=== PATIENT | male | born 1930 | race Caucasian/White ===

== ENCOUNTER 2016-11-09 21:03 | Emergency (ER) | payer OTHER, MEDICARE ==
[~2016-11-09] VITALS: Ht 177.8 cm; Wt 74.8 kg
[~2016-11-09 21:03] MED LIST: ATORVASTATIN CA40 M1 PO; CYANOCOBAL1000 MCG/2 AD; DONEPEZIL HCL10 M1 PO; ELIQUIS2.5 M1 PO; FISH OIL 120 MG1 CAP PO; HYDRALAZINE HCL10 M1 PO; LISINOPRIL10 M1 PO; LISINOPRIL10 MG PO; LISINOPRIL20 MG PO; LOPRESSOR100 M1 PO; MAG-OX 400400 MG PO; NAMENDA10 M2 PO; NORVASC2.5 M1 PO; PERCOCET 325 MG1 TA2 PO; SIMVASTATIN40 MG PO; TYLENOL #31 TAB PO; VITAMIN D400 UNI2 PO; ZOFRAN ODT4 MG PO; ZOFRAN4 M1 PO
[2016-11-09 21:54] LABS: ABSOLUTE BASOPHIL COUNT 0 /CUMM (0.0-0.2); ABSOLUTE EOSINOPHIL COUNT 0 /CUMM (0.0-0.7); ABSOLUTE GRANULOCYTE CT 4.1 /CUMM (1.4-6.5); ABSOLUTE LYMPH COUNT 0.6 /CUMM (1.2-3.4); ABSOLUTE MONOCYTE COUNT 0.5 /CUMM (0.10-0.60); BASOPHIL % 0.5 % (0.0-2.0); EOSINOPHIL % 0.7 % (0-5); GRANULOCYTE % 77.4 % (42.2-75.2); HEMATOCRIT 40.8 % (42-52); MEAN CORPUSCULAR HGB CONC 33.4 G/DL (33.0-37.0); MEAN CORPUSCULAR VOLUME 95.7 FL (80.0-94.0); MEAN PLATELET VOLUME 7.9 FL (7.4-10.4); PLATELET COUNT 177 /CUMM (130-400); RBC DISTRIBUTION WIDTH 13.7 % (11.5-14.5); RED BLOOD CELL CT 4.27 /CUMM (4.70-6.10); WHITE BLOOD CELL COUNT 5.4 /CUMM (4.8-10.8)
[2016-11-09 22:03] LABS: PT 10.9 SEC (9.4-12.5); PTT 29 SEC (25-37)
--- NOTE | 2016-11-09 22:03 | ED CARDIAC/CP/PALPITATIONS ---
History of Present Illness General Chief Complaint: General Adult Stated Complaint: "CARDIAC PROBLEM" Source: patient Exam Limitations: no limitations Vital Signs & Intake/Output Vital Signs & Intake/Output Vital Signs Date Time Temp Pulse Resp B/P Pulse O2 O2 Flow FiO2 Ox Delivery Rate 11/09 2304 97.5 69 20 109/63 94 Room Air 11/09 2115 98.5 104 18 125/81 95 Room Air Allergies Coded Allergies: No Known Drug Allergies (06/24/16) Reconcile Medications Amlodipine (Norvasc) (Unknown Strength) TABLET 1 TAB PO BID HEART/BP ( Reported) Apixaban (Eliquis) 2.5 MG TABLET 1 TAB PO BID BLOOD THINNER (Reported) Atorvastatin Calcium 40 MG TABLET 0.5 TAB PO QPM CHOLESTEROL (Reported) Cholecalciferol (Vitamin D3) (Vitamin D) (Unknown Strength) TABLET (Unknown Dose) PO DAILY SUPPLEMENT (Reported) Cyanocobalamin (Vitamin B-12) (Cyanocobalamin Injection) (Unknown Strength) VIAL (Unknown Dose) AD AD SUPPLEMENT (Reported) Donepezil HCl 10 MG TABLET 1 TAB PO QPM MEMORY (Reported) Lisinopril 10 MG TABLET 1 TAB PO QAM HEART/BP (Reported) Metoprolol Tartrate (Lopressor) (Unknown Strength) TABLET 100 MG PO QAM HEART/ BP (Reported) Triage Note: PT TO TRIAGE WITH C/O MIDSTERNAL CHEST PAIN 2/10, PALPITATIONS, AND 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 HR 104 IN TRIAGE, O2SAT 95% ON RA. HX OF ARRHYTHMIA, PROSTATE CA, CARCENOMA. EKG DONE IN [place], PT TO ROOM2 BY STRETCHER. Triage Nurses Notes Reviewed? yes Onset: Abrupt Duration: hour(s):, constant, continues in ED Timing: recent history HPI: 86-year-old male comes into emergency room with complaints of heart palpitations and going on since couple hours prior to arrival. Patient reports the symptoms are better at this time. Denies any chest pain shortness of breath diaphoresis nausea vomiting. Denies any other associated symptoms. (VINCENT HAMILTON) Past History Travel History Traveled to [place] past 21 day No Medical History Any Pertinent Medical History? 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 No (VINCENT HAMILTON) Review of Systems Review of Systems Constitutional: Reports: no symptoms. EENTM: Reports: no symptoms. Respiratory: Reports: no symptoms. Cardiovascular: Reports: see HPI. GI: Reports: no symptoms. Genitourinary: Reports: no symptoms. Musculoskeletal: Reports: no symptoms. Skin: Reports: no symptoms. Neurological/Psychological: Reports: no symptoms. Hematologic/Endocrine: Reports: no symptoms. Immunologic/Allergic: Reports: no symptoms. All Other Systems: Reviewed and Negative (VINCENT HAMILTON) Physical Exam Physical Exam General Appearance: well developed/nourished, no apparent distress, alert Head: atraumatic, normal appearance Eyes: Bilateral: normal appearance, EOMI. Ears, Nose, Throat: normal pharynx, normal ENT inspection Neck: normal inspection Respiratory: normal breath sounds, no respiratory distress Cardiovascular: regular rate/rhythm Back: normal inspection Extremities: normal inspection Neurologic/Psych: awake, alert, oriented x 3, normal gait Skin: intact, normal color Core Measures ACS in differential dx? No Severe Sepsis Present: No Septic Shock Present: No (VINCENT HAMILTON) Progress Differential Diagnosis: AMI, aortic dissection, cholecystitis, costochondritis, hyperkalemia, hypovolemia, hyperthyroid, intracranial hemorrhage, musculoskeletal pain, myocarditis, pancreatitis, pericarditis, pneumothorax, PSVT, pulmonary embolism, PVCs/PACs, respiratory failure, rib fracture, unstable angina, V-fib/V-Tach Plan of Care: Orders Procedure Date/time Status EKG 11/09 2256 Active Telemetry/Solar System Installer 11/09 2133 Active TROPONIN LEVEL 11/09 2132 Complete PARTIAL THROMBOPLASTIN TIME 11/09 2132 Complete PROTHROMBIN TIME 11/09 2132 Complete COMPREHENSIVE METABOLIC PANEL 11/09 2132 Complete CBC WITHOUT DIFFERENTIAL 11/09 2132 Complete EKG 11/09 2103 Active Laboratory Tests 02/14/17 2145: Anion Gap 9, Estimated GFR > 60, BUN/Creatinine Ratio 23.6, Glucose 162 H, Calcium 8.6, Total Bilirubin 0.3, AST 20, ALT 30, Alkaline Phosphatase 64, Troponin I 0.03, Total Protein 6.2 L, Albumin 3.9, Globulin 2.3, Albumin/ Globulin Ratio 1.7, PT 10.9, INR 1.04, APTT 29, CBC w Diff NO MAN DIFF REQ, RBC 4.27 L, MCV 95.7 H, MCH 32.0 H, RDW 13.7, MPV 7.9, Gran % 77.4 H, Lymphocytes % 12.1 L, Monocytes % 9.3, Eosinophils % 0.7, Basophils % 0.5, Absolute Granulocytes 4.1, Absolute Lymphocytes 0.6 L, Absolute Monocytes 0.5, Absolute Eosinophils 0, Absolute Basophils 0, PUBS MCHC 33.4 Diagnostic Imaging: Viewed by Me: Radiology Read. Discussed w/RAD: Radiology Read. Radiology Impression: SERVICE DATE: 11/09/16 EXAM TYPE: RAD - XRY- PORTABLE CHEST XRAY EXAMINATION: XR PORTABLE CHEST CLINICAL INFORMATION: Palpitations. COMPARISON: Chest x-ray 07/12/2016 TECHNIQUE: Portable AP portable view of the chest was obtained. 10:14 PM FINDINGS: Ventriculoperitoneal shunt catheter over the right chest. Lungs are clear. No pulmonary vascular congestion. No infiltrate or pleural effusion. The heart size is normal. The cardiac and mediastinal contours are normal. There are calcifications of the thoracic aorta. There are multilevel degenerative changes of dorsal spine. IMPRESSION: Unremarkable examination. Initial ED EKG: rate (106), AFIB Repeat EKG: changed (NSR, rate 71) Rhythm Strip: patient appears to be in sinus rhythm on the monitor (VINCENT HAMILTON) Departure Departure Disposition: HOME OR SELF CARE Condition: Stable Clinical Impression Primary Impression: Paroxysmal a-fib Referrals: TRUMAN MALIK,JANINA Chawla (PCP/Family) Additional Instructions: Follow-up with your agent broker this week. Return to the emergency room immediately if any other concerns worsening symptoms. Please go over all results of today's visit with your primary care doctor. Contact your primary care doctor to let them know you were here in the emergency room. There may be nonspecific findings which may not be related to your visit today here in the emergency room but may require further evaluation and chronic monitoring by your primary care doctor. If you had a laceration today the chance of foreign body always remains. You should follow-up with your primary care doctor for recheck in 3-5 days for a wound check. If you had an x-ray done there is a chance that a fracture could have been missed on initial read and you should follow-up with your primary care doctor for repeat x-rays if symptoms persist. If your blood pressure was elevated here in the emergency room please have rechecked by her primary care doctor within the next 48 hours by your primary care doctor. If you were prescribed a narcotic here in the emergency room or any type of controlled substances you're not allowed to drive while taking this medication or operate any type of heavy machinery. Narcotics can make you feel lightheaded dizziness nausea and can cause constipation. You may need to pick pack worker a stool softener. Thank you for choosing [facility] emergency room. Please return to the emergency room immediately if you have any other concerns worsening of symptoms. Departure Forms: Customer Survey General Discharge Information Comments 11/09/2016 11:54:58 PM Patient converted back to a normal sinus rhythm. Patient's symptoms resolved. Case was discussed with Dr. Trent. Patient is currently on oral anticoagulants. Patient has not had any chest pain or shortness of breath. Patient only had palpitations. Due to the fact that the patient is asymptomatic with a normal workup and in normal sinus rhythm at this time and is currently on oral anticoagulants patient can be discharged and follow up with cardiology this week in the office. Case discussed with Dr. Bolden and patient was seen by Dr. Bolden. (VINCENT HAMILTON) PA/IRON MELTER Co-Sign Statement Statement: ED Attending supervision documentation- [x] I saw and evaluated the patient. I have also reviewed all the pertinent lab results and diagnostic results. I agree with the findings and the plan of care as documented in the PA's/IRON MELTER's documentation. [] I have reviewed the ED Record and agree with the PA's/IRON MELTER's documentation. [] Additions or exceptions (if any) to the PAs/IRON MELTER's note and plan are summarized below: [] (AUDRA MALIK,JUSTICE Reed) Critical Care Note Critical Care Note Critical Care Time: non-applicable (VINCENT HAMILTON)
--- NOTE | 2016-11-09 22:37 | RADIOLOGY REPORT ---
EXAMINATION: XR PORTABLE CHEST CLINICAL INFORMATION: Palpitations. COMPARISON: Chest x-ray 07/12/2016 TECHNIQUE: Portable AP portable view of the chest was obtained. 10:14 PM FINDINGS: Ventriculoperitoneal shunt catheter over the right chest. Lungs are clear. No pulmonary vascular congestion. No infiltrate or pleural effusion. The heart size is normal. The cardiac and mediastinal contours are normal. There are calcifications of the thoracic aorta. There are multilevel degenerative changes of dorsal spine. IMPRESSION: Unremarkable examination.
[2016-11-09 23:04] VITALS: BP 109/63
== END 2016-11-09 23:44 ==
LOC: ERH 21:03
PROVIDERS: Physician Assistant Medical
DX: R07.89 Other chest pain (principal); I48.91 Unspecified atrial fibrillation
CPT/HCPCS: 93005; 93010

== ENCOUNTER 2017-02-21 10:04 | Emergency (ER) | payer OTHER, MEDICARE ==
[~2017-02-21] VITALS: Ht 177.8 cm; Wt 76.2 kg
--- NOTE | 2017-02-21 11:10 | ED AMS/SEIZURE/WEAK/DIZZY ---
History of Present Illness General Chief Complaint: General Adult Stated Complaint: ESPANA WHEN LAYING DOWN WEAKNESS Source: patient Exam Limitations: no limitations Vital Signs & Intake/Output Vital Signs & Intake/Output Vital Signs Date Time Temp Pulse Resp B/P B/P Pulse O2 O2 Flow FiO2 Mean Ox Delivery Rate 02/21 1339 97.6 02/21 1008 97.6 60 18 195/85 96 Room Air Allergies Coded Allergies: No Known Drug Allergies (06/24/16) Reconcile Medications Amlodipine (Norvasc) (Unknown Strength) TABLET 1 TAB PO BID HEART/BP ( Reported) Apixaban (Eliquis) 2.5 MG TABLET 1 TAB PO BID BLOOD THINNER (Reported) Atorvastatin Calcium 40 MG TABLET 0.5 TAB PO QPM CHOLESTEROL (Reported) Cholecalciferol (Vitamin D3) (Vitamin D) (Unknown Strength) TABLET (Unknown Dose) PO DAILY SUPPLEMENT (Reported) Cyanocobalamin (Vitamin B-12) (Cyanocobalamin Injection) (Unknown Strength) VIAL (Unknown Dose) AD AD SUPPLEMENT (Reported) Donepezil HCl 10 MG TABLET 1 TAB PO QPM MEMORY (Reported) Lisinopril 10 MG TABLET 1 TAB PO QAM HEART/BP (Reported) Metoprolol Tartrate (Lopressor) (Unknown Strength) TABLET 100 MG PO QAM HEART/ BP (Reported) Triage Note: 86 YO MALE TO TRIAGE C/O ESPANA AND NAUSEA FOR A COUPLE DAYS. AFEBRILE. NIC DIARRHEA, DENIES ABD PAIN, CHEST PAIN. Triage Nurses Notes Reviewed? yes HPI: Patient presents for evaluation of headache and fatigue. The patient is a somewhat poor historian, admittedly having a poor memory. According to his he has had intermittent headaches for months at least and he has fatigue "constantly" she states he also has had a cough with eating for "a long time". This seems to be no acute change this morning other than the patient himself feeling the need to be evaluated. There has been no associated fever, chest pain, dyspnea, abdominal pain, rashes or dysuria. Patient has an extensive past medical history and takes a number of medications. He typically has trouble sleeping at night including 3-4 trips to the bathroom to urinate. He tried Tylenol PM to help sleep last night without much improvement. Past History Travel History Traveled to [place] past 21 day No Medical History Any Pertinent Medical History? 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 No Review of Systems Review of Systems Constitutional: Reports: see HPI. EENTM: Reports: no symptoms. Respiratory: Reports: no symptoms. Cardiovascular: Reports: no symptoms. GI: Reports: no symptoms. Genitourinary: Reports: no symptoms. Musculoskeletal: Reports: no symptoms. Skin: Reports: no symptoms. Neurological/Psychological: Reports: headache. Hematologic/Endocrine: Reports: no symptoms. Immunologic/Allergic: Reports: no symptoms. All Other Systems: Reviewed and Negative Physical Exam Physical Exam General Appearance: SEE BELOW Comments: Gen.: Well-nourished, well-developed, no acute respiratory distress. Head: Normocephalic, atraumatic. Eyes: Normal inspection bilaterally Ears: Normal inspection bilaterally Nose: Normal inspection Throat/mouth : Tacky mucosa Neck: Supple, full range of motion, no goiter, no JVD Heart: Regular rate and rhythm, systolic murmur most prominent over the left sternal border Lungs: Clear to auscultation bilaterally with normal air entry Chest: Nontender Back: Normal range of motion Abdomen: Soft, nontender, nondistended, normal bowel sounds Extremities: Normal range of motion grossly, equal radial pulses, no cyanosis clubbing or edema, normal extremity strength Neurologic: Cranial nerves grossly intact, speech is clear Skin: warm and dry Psychiatric: Calm, cooperative, no apparent delusions or hallucinations Core Measures ACS in differential dx? No CVA/TIA Diagnosis: No Severe Sepsis Present: No Septic Shock Present: No Progress Differential Diagnosis: anemia, CVA/stroke, dehydration, electrolyte imbalance, hypoglycemia, hypoxia, pneumonia, sepsis, UTI/pyelo Plan of Care: Orders Procedure Date/time Status URINALYSIS 02/21 1109 Complete THYROID STIMULATING HORMONE 02/21 110 Complete TROPONIN LEVEL 02/21 1109 Complete COMPREHENSIVE METABOLIC PANEL 02/21 1109 Complete CBC WITHOUT DIFFERENTIAL 02/21 1109 Complete EKG 02/21 1109 Active Laboratory Tests 02/21/17 1340: Urine Color YEL, Urine Clarity CLEAR, Urine pH 7.0, Ur Specific Mazon 1.020, Urine Protein TRACE H, Urine Ketones NEG, Urine Nitrite NEG, Urine Bilirubin NEG, Urine Urobilinogen 0.2, Ur Leukocyte Esterase NEG, Ur Microscopic SEDIMENT EXAMINED, Urine RBC 3-5, Urine WBC RARE, Urine Mucus MOD H, Urine Hemoglobin TRACE-INTACT H, Urine Glucose NEG 02/21/17 1122: Anion Gap 10, Estimated GFR > 60, BUN/Creatinine Ratio 28.2 H, Glucose 120 H, Calcium 8.8, Total Bilirubin 0.6, AST 19, ALT 36, Alkaline Phosphatase 59, Troponin I < 0.01, Total Protein 6.2 L, Albumin 3.9, Globulin 2.3, Albumin/ Globulin Ratio 1.7, TSH 1.290, CBC w Diff NO MAN DIFF REQ, RBC 4.11 L, MCV 94.5 H, MCH 31.9 H, RDW 13.7, MPV 7.7, Gran % 86.5 H, Lymphocytes % 8.5 L, Monocytes % 4.8, Eosinophils % 0.2, Basophils % 0 L, Absolute Granulocytes 3.9, Absolute Lymphocytes 0.4 L, Absolute Monocytes 0.2, Absolute Eosinophils 0, Absolute Basophils 0, PUBS MCHC 33.8 Diagnostic Imaging: Discussed w/RAD: CT Scan. Radiology Impression: PATIENT: NIA JACKSON PRESENT AGE: 86 PATIENT ACCOUNT NO: [id number] : 29 LOCATION: [facility] ORDERING PHYSICIAN: CAMERON BOLDEN MD SERVICE DATE: 02/21/17 EXAM TYPE: CAT - CT HEAD WO IV CONTRAST EXAMINATION: CT HEAD WITHOUT CONTRAST CLINICAL INFORMATION: Normal pressure hydrocephalus with shunt. Cerebrovascular accident. Fatigue and headache. COMPARISON: CT scan of the head 07/12/2016. TECHNIQUE: Contiguous axial imaging was performed from the skull base to vertex without intravenous administration of contrast. DLP: 694.56 mGy-cm FINDINGS: There is a right frontal ventriculoperitoneal shunt with its proximal tip located within the right lateral ventricle near the foramen of Monro. Visualized tubing is grossly intact. There is no acute intracranial hemorrhage or abnormal extra-axial collection. No intracranial mass effect or midline shift. Lateral and third ventricles are proportionate to the subarachnoid spaces. Liu-white matter differentiation is grossly preserved and there is no evidence of acute territorial infarct. The skull base is intact. There is no mastoid or middle ear effusion. Visualized paranasal sinuses are well-aerated. Globes and orbits are symmetric. IMPRESSION: Stable ventriculomegaly. The position of the right frontal ventriculoperitoneal shunt remains unchanged. No evidence of acute territorial infarct or hemorrhage. DICTATED BY: ROSALES FIGUEROA MD DATE/TIME DICTATED:02/21/171226 ROW BOSS HOEING:PERSON DATE/TIME TRANSCRIBED:1226 CONFIDENTIAL, DO NOT COPY WITHOUT APPROPRIATE AUTHORIZATION. < Electronically signed in Other Vendor System> SIGNED BY: ROSALES FIGUEROA MD 02/21/17 1245 CXR Impression: PATIENT: NIA JACKSON PRESENT AGE: 86 PATIENT ACCOUNT NO: [id number] : 29 LOCATION: [facility] ORDERING PHYSICIAN: CAMERON BOLDEN MD SERVICE DATE: 02/21/17 EXAM TYPE: RAD - XRY-PORTABLE CHEST XRAY EXAMINATION: XR PORTABLE CHEST CLINICAL INFORMATION: Cough for dating. COMPARISON: Chest 11/09/2016 TECHNIQUE: Portable frontal view of the chest was obtained. FINDINGS: Lungs are expanded without any acute process. The heart size an pulmonary vascularity is normal. No gross bony abnormality seen. There is a right anterior chest wall ventriculoperitoneal shunt catheter visualized. IMPRESSION: No acute process seen in the chest. DICTATED BY: JODI DUMONT MD DATE/TIME DICTATED:02/21/171217 ROW BOSS HOEING:CHERI DATE/TIME TRANSCRIBED:02/21/171217 CONFIDENTIAL, DO NOT COPY WITHOUT APPROPRIATE AUTHORIZATION. <Electronically signed in Other Vendor System> SIGNED BY: JODI DUMONT MD 02/21/171224 Initial ED EKG: NSR, rate (54) Prior EKG: unchanged Departure Departure Disposition: HOME OR SELF CARE Condition: Stable Clinical Impression Primary Impression: Malaise and fatigue Referrals: JANINA KEANE MD (PCP/Family) Additional Instructions: Follow-up with Dr. Keane as scheduled this week. Maintained a good fluid intake. Tylenol as needed for headache pain. Return if any concerns or sudden worsening. Please note that there might be incidental findings in your evaluation that are unrelated to the current emergency department visit. Please notify your primary care doctor about this emergency department visit in order to obtain and review all of the testing performed so that these incidental findings can be monitored as needed. If you had an x-ray performed, please understand that some fractures may not be seen on the initial set of x-rays. If your symptoms persist you might need a repeat set of x-rays to check for such a fracture. If you had a laceration evaluated, please understand that foreign bodies such as glass or wood may not be visible to the naked eye or on plain x-rays. If the wound becomes red, swollen, increasingly more painful or if there is any drainage from the wound, please have it reevaluated by a physician for the possibility of a retained foreign body. Thank you for choosing the Emergency Department for your care. It was a pleasure to serve you today. Cameron Bolden M.D. [facility] Departure Forms: Customer Survey General Discharge Information
[2017-02-21 11:30] LABS: ABSOLUTE BASOPHIL COUNT 0 /CUMM (0.0-0.2); ABSOLUTE EOSINOPHIL COUNT 0 /CUMM (0.0-0.7); ABSOLUTE GRANULOCYTE CT 3.9 /CUMM (1.4-6.5); ABSOLUTE LYMPH COUNT 0.4 /CUMM (1.2-3.4); ABSOLUTE MONOCYTE COUNT 0.2 /CUMM (0.10-0.60); BASOPHIL % 0 % (0.0-2.0); EOSINOPHIL % 0.2 % (0-5); HEMATOCRIT 38.8 % (42-52); MEAN CORPUSCULAR HGB 31.9 PG (27.0-31.0); MEAN CORPUSCULAR HGB CONC 33.8 G/DL (33.0-37.0); MEAN CORPUSCULAR VOLUME 94.5 FL (80.0-94.0); MEAN PLATELET VOLUME 7.7 FL (7.4-10.4); RBC DISTRIBUTION WIDTH 13.7 % (11.5-14.5); RED BLOOD CELL CT 4.11 /CUMM (4.70-6.10); WHITE BLOOD CELL COUNT 4.5 /CUMM (4.8-10.8)
[2017-02-21 11:41] LABS: GRANULOCYTE % 86.5 % (42.2-75.2); PLATELET COUNT 179 /CUMM (130-400)
--- NOTE | 2017-02-21 12:25 | RADIOLOGY REPORT ---
EXAMINATION: XR PORTABLE CHEST CLINICAL INFORMATION: Cough for dating. COMPARISON: Chest 11/09/2016 TECHNIQUE: Portable frontal view of the chest was obtained. FINDINGS: Lungs are expanded without any acute process. The heart size an pulmonary vascularity is normal. No gross bony abnormality seen. There is a right anterior chest wall ventriculoperitoneal shunt catheter visualized. IMPRESSION: No acute process seen in the chest.
--- NOTE | 2017-02-21 12:45 | CT SCAN REPORT ---
EXAMINATION: CT HEAD WITHOUT CONTRAST CLINICAL INFORMATION: Normal pressure hydrocephalus with shunt. Cerebrovascular accident. Fatigue and headache. COMPARISON: CT scan of the head 07/12/2016. TECHNIQUE: Contiguous axial imaging was performed from the skull base to vertex without intravenous administration of contrast. DLP: 694.56 mGy-cm FINDINGS: There is a right frontal ventriculoperitoneal shunt with its proximal tip located within the right lateral ventricle near the foramen of Monro. Visualized tubing is grossly intact. There is no acute intracranial hemorrhage or abnormal extra-axial collection. No intracranial mass effect or midline shift. Lateral and third ventricles are proportionate to the subarachnoid spaces. Liu-white matter differentiation is grossly preserved and there is no evidence of acute territorial infarct. The skull base is intact. There is no mastoid or middle ear effusion. Visualized paranasal sinuses are well-aerated. Globes and orbits are symmetric. IMPRESSION: Stable ventriculomegaly. The position of the right frontal ventriculoperitoneal shunt remains unchanged. No evidence of acute territorial infarct or hemorrhage.
[2017-02-21 14:50] VITALS: BP 179/89
== END 2017-02-21 14:53 ==
LOC: ERH 10:04
PROVIDERS: Emergency Medicine
DX: R53.81 Other malaise (principal); R53.83 Other fatigue
CPT/HCPCS: 81001; 93005; 93010; J7040